=== PATIENT | male | born 1960 | race Caucasian/White ===

== ENCOUNTER 2017-03-28 12:12 | Emergency (ER) | payer OTHER ==
[~2017-03-28] VITALS: Ht 167.6 cm; Wt 97.5 kg
[2017-03-28] MEDS ORDERED: KETO10TA2 PO (17:44)
== END 2017-03-28 18:05 | disposition home or self-care (01) ==
LOC: ER 12:12
DX: S90.31XA Contusion of right foot, initial encounter (principal); S80.11XA Contusion of right lower leg, initial encounter; W10.9XXA Fall (on) (from) unspecified stairs and steps, initial encounter; Y93.89 Activity, other specified; Y92.098 Other place in other non-institutional residence as the place of occurrence of the external cause; Y99.8 Other external cause status

== ENCOUNTER → 2017-05-05 | Day surgery (SDC) | payer OTHER ==
[~2017-05-05] MED LIST: ALEVE220 M1 PO; CEFADROXIL500 MG PO; KETO10TA2 PO; PERCOCET 5-3251 EACH PO
== END | disposition home or self-care (01) ==
LOC: CIR.AMB 06:33
DX: S86.011A Strain of right Achilles tendon, initial encounter (principal)

== ENCOUNTER 2019-08-11 09:33 | Outpatient (CLI) | payer OTHER | END 2019-08-11 09:42 | disposition home or self-care (01) | LOC: RAD 09:33 | PROVIDERS: ATTEND Chiropractor Sports Physician | DX: M54.5 Low back pain (principal) ==

== ENCOUNTER → 2021-06-25 | Outpatient (CLI) | payer OTHER | END | disposition home or self-care (01) | LOC: NUCLEAR 07:00 | PROVIDERS: ATTEND Internal Medicine Cardiovascular Disease | DX: I25.2 Old myocardial infarction (principal) | CPT/HCPCS: 78452; 93017; A9500 ==